=== PATIENT | male | born 1940 | race Caucasian/White ===

== ENCOUNTER 2023-10-16 08:15 | Day surgery (SDC) | payer MEDICARE ==
[2023-10-16] VITALS (9 sets, daily range): BP systolic 101–165; BP diastolic 50–77; PULSE 60–66; RESP 12; TEMP 99.1; O2SAT 95–99
[~2023-10-16] VITALS: Ht 154.9 cm; Wt 75.6 kg
[~2023-10-16 08:15] MED LIST: ASPI-1264 PO; ATOR20TA PO; FLO0.4C PO; LEVO25TA7 PO; MULT-1141 PO; OLME20TA15 PO; OMEG500C PO
[2023-10-16] MEDS ORDERED: normal saline 1000ml 1,000 ML IV SCH ×2 (08:40→12:30)
[2023-10-16] MEDS ORDERED: cefazolin 2gm/D5W 100mL 100 ML IV ONE (09:00)
[2023-10-16] MEDS ORDERED: cefazolin 2gm/D5W 100mL 50 ML IV ONE (09:07)
[2023-10-16 09:57] LABS: BASOPHILS # (AUTO) 0.1 X10'3 (0-0.2); BASOPHILS % (AUTO) 0.9 % (0-1); EOSINOPHILS # (AUTO) 0.1 X10'3 (0-0.9); HEMATOCRIT 44.2 % (42.0-52.0); HEMOGLOBIN 14.7 g/dl (14.0-17.9); LYMPHOCYTES # (AUTO) 1.6 X10'3 (1.1-4.8); LYMPHOCYTES % (AUTO) 22.3 % (21-51); MEAN CORPUSCULAR HEMOGLOBIN 31.2 PG (27.0-31.0); MEAN CORPUSCULAR HGB CONC 33.3 g/dL (33.0-36.5); MEAN CORPUSCULAR VOLUME 93.8 FL (78-98); MEAN PLATELET VOLUME 9.2 FL (7.4-10.4); MONOCYTES # (AUTO) 0.5 X10'3 (0-0.9); MONOCYTES % (AUTO) 7.3 % (2-12); NEUTROPHILS % (AUTO) 68.5 % (42-75); PLATELET COUNT 195 X10'3 (140-440); RED BLOOD COUNT 4.71 X10'6 (4.70-6.10); RED CELL DISTRIBUTION WIDTH 13.8 % (11.5-14.5); WHITE BLOOD COUNT 7.3 X10'3 (4.5-11.0)
[2023-10-16] MEDS ORDERED: ASPI81TA52 PO (09:59)
[2023-10-16] MEDS ORDERED: LIDOcaine 1% W/epiNEPHrine 1:100,000 20ml vial ONE (10:05)
[2023-10-16] MEDS ORDERED: fentaNYL/PF 50MCG/1 ML 2ML syringe ONE ×2 (10:05→11:34)
[2023-10-16] MEDS ORDERED: midazolam 1 mg/ML 2ml injection ONE ×2 (10:05→11:34)
[2023-10-16] MEDS ORDERED: ceFAZolin 1000mg inj ONE (10:06)
[2023-10-16 12:15] LABS: ALBUMIN 3.9 G/DL (3.4-5.0); ANION GAP 7 (8-16); BLOOD UREA NITROGEN 23 MG/DL (7-18); BUN/CREATININE RATIO 20.2 (10.0-20.0); CALCIUM 10.1 MG/DL (8.5-10.1); CHLORIDE 112 MMOL/L (99-107); CREATININE 1.14 MG/DL (0.60-1.10); GLUCOSE 110 MG/DL (70-104); POTASSIUM 4.8 MMOL/L (3.5-5.1); SODIUM 147 MMOL/L (135-145); TOTAL CARBON DIOXIDE 27.8 MMOL/L (24-32); eCRCL 37 ML/MIN; eGFR 61 ML/MIN
[2023-10-16] MEDS: vancomycin/NS 1 GM ADD-VANTAGE 250 ML X 1 DOSE IV ONE (13:01)
[2023-10-16] MEDS: acetaminophen 325mg tablet PO PRN (14:19)
== END 2023-10-16 15:50 | disposition home or self-care (01) ==
LOC: SSTAY O 08:15
PROVIDERS: ATTEND Internal Medicine Cardiovascular Disease
DX: Z45.010 Encounter for checking and testing of cardiac pacemaker pulse generator [battery] (principal); I49.5 Sick sinus syndrome; I10 Essential (primary) hypertension; E78.5 Hyperlipidemia, unspecified; I48.91 Unspecified atrial fibrillation; N40.0 Benign prostatic hyperplasia without lower urinary tract symptoms; Z86.718 Personal history of other venous thrombosis and embolism; Z79.890 Hormone replacement therapy; Z79.899 Other long term (current) drug therapy; Z98.890 Other specified postprocedural states; Z80.49 Family history of malignant neoplasm of other genital organs; Z82.49 Family history of ischemic heart disease and other diseases of the circulatory system
CPT/HCPCS: 33228; 36415; 80048; 85025; 85610; 93005; 99152; 99153; C1785; J0690; J2250; J3010; J3370; J3490; J7030; A6258; A6449